=== PATIENT | female | born 1950 | race African-American/Black ===

== ENCOUNTER 2016-11-28 10:35 | Emergency (ER) | payer MEDICARE ==
[~2016-11-28] VITALS: Ht 163.8 cm; Wt 77.2 kg
[2016-11-28] MEDS ORDERED: LISI-662 PO (10:45)
[2016-11-28] MEDS ORDERED: METO25 PO (10:45)
[2016-11-28] MEDS ORDERED: FOLI0.4T30 PO (10:45)
[2016-11-28] MEDS ORDERED: GABA-531 PO (10:45)
[2016-11-28] MEDS ORDERED: TRAM50TA4 PO (10:45)
[2016-11-28] MEDS ORDERED: AMLO2.5T PO (10:45)
[2016-11-28 12:11] LABS: BASOPHILS % (AUTO) 0.1 % (0.0-2.0); EOSINOPHILS % (AUTO) 2.1 % (1.0-6.0); HEMATOCRIT 36.4 % (36-46); HEMOGLOBIN 11.7 g/dL (12.0-16.0); LYMPHOCYTES # (AUTO) 1.7 K/uL (1.0-4.8); LYMPHOCYTES % (AUTO) 22.8 % (22.0-44.0); MEAN CORPUSCULAR HEMOGLOBIN 29.8 pg (26.0-34.0); MEAN CORPUSCULAR HGB CONC 32.1 G/dL (31.0-37.0); MEAN CORPUSCULAR VOLUME 93 fL (80-100); MONOCYTES # (AUTO) 1.1 K/uL (0.1-1.0); MONOCYTES % (AUTO) 14.5 % (2.0-9.0); NEUTROPHILS # (AUTO) 4.6 K/uL (1.8-7.7); NEUTROPHILS % (AUTO) 60.5 % (40.0-70.0); PLATELET COUNT (AUTO) 244 K/uL (150-450); RED BLOOD CELL COUNT(AUTO) 3.93 MIL/uL (4.00-5.20); RED CELL DISTRIBUTION WIDTH 14.2 % (11.5-14.5); WHITE BLOOD COUNT (AUTO) 7.6 K/uL (4.5-11.0)
[2016-11-28 12:18] LABS: ANION GAP 5 mmol/L (8-16); CALCIUM, TOTAL 8.9 mg/dL (8.8-10.5); CARBON DIOXIDE 32 mmol/L (22-29); CHLORIDE 104 mmol/L (98-107); CREATININE 1.07 mg/dL (0.60-1.30); GLOMERULAR FILTR. RATE CALC > 60 mL/min (>60); POTASSIUM 4.2 mmol/L (3.5-5.1); SODIUM SERUM 141 mmol/L (136-145); UREA NITROGEN, BLOOD 21 mg/dL (7-18)
[2016-11-28 12:25] LABS: ALANINE AMINOTRANSFERASE 12 U/L (12-78); ALBUMIN 2.9 g/dL (3.4-5.0); ASPARTATE AMINOTRANSFERASE 12 U/L (15-37); BILIRUBIN,TOTAL 0.4 mg/dL (0.1-1.0); TOTAL PROTEIN, SERUM 7.5 g/dL (6.4-8.2)
[2016-11-28] MEDS ORDERED: ACETAMINOPHEN 325 MG TABLET PO ONE (12:30)
[2016-11-28 13:19] VITALS: BP 124/66
== END 2016-11-28 13:51 | disposition home or self-care (01) ==
LOC: EMS 10:40
DX: J06.9 Acute upper respiratory infection, unspecified (principal); R51 Headache; R05 Cough; I10 Essential (primary) hypertension; M19.90 Unspecified osteoarthritis, unspecified site; Z90.710 Acquired absence of both cervix and uterus
CPT/HCPCS: 87430; 99284

== ENCOUNTER 2017-09-30 08:54 | Emergency (ER) | payer MEDICARE ==
[~2017-09-30] VITALS: Ht 162.6 cm; Wt 122.7 kg
[~2017-09-30 08:54] MED LIST: AMLO2.5T PO; FLUO-191 PO; FOLI0.4T4 PO; FURO40 PO; GABA-531 PO; LISI-662 PO; LISI20TA PO; METO25 PO; TRAM50TA4 PO
[2017-09-30 10:04] VITALS: BP 145/79
[2017-09-30] MEDS ORDERED: ALBUTEROL SULFATE HFA 90 MCG/PUFF 8 GM INHALER IH ONE (10:30)
[2017-09-30 10:33] LABS: INFLUENZA TYPE A NEGATIVE FOR TYPE A (NEGATIVE); INFLUENZA TYPE B NEGATIVE FOR TYPE B (NEGATIVE)
== END 2017-09-30 10:50 | disposition home or self-care (01) ==
LOC: EMS 08:58
DX: J40 Bronchitis, not specified as acute or chronic (principal); I10 Essential (primary) hypertension; R51 Headache
CPT/HCPCS: 87804; 94640; 99284; J3535